=== PATIENT | female | born 1940 | race African-American/Black ===

== ENCOUNTER 2017-02-27 15:00 | Emergency (ER) | payer MEDICARE, OTHER ==
[2017-02-27 15:09] VITALS: TEMP 98.5; BMI 21.3
--- NOTE | 2017-02-27 15:56 | PDOC ---
History of Present Illness - General Chief Complaint: Pain Stated Complaint: ABD PAIN Time Seen by Provider: 02/27/17 15:04 - History of Present Illness Initial Comments: 02/27/17 15:48 Ms. Messina is a 76 yo F with h/o diverticulosis, and dementia who presents with new onset abdominal pain. Pt. arrived via EMS after experiencing sharp lower, 10 /10, nonmigratory, unremitting, progressive, abdominal pain this AM. Pain aggravated with movement, pressure, and laying supine. Pt. reports pain refractory to pain medication administered by home health, but unable to recall which medication received. Endorses one episode of bilious vomiting with no visualization of blood in emesis 24 hours ago. Denies violent retching or chest pain. Denies reflux symptoms. Last BM this AM with no visualization of blood in stool or dark stools. Denies constipation/diarrhea, fevers/chills, flank pain , hematuria, postprandial pain, increased urinary frequency or urgency,. Pt urinary incontinence at baseline. Pt. has chronic Patino. Endorses adequate fluid hydration and appetite. Past History - Past Medical History Allergies/Adverse Reactions: Allergies Allergy/AdvReac Type Severity Reaction Status Date / Time aspirin Allergy Verified 02/27/17 15:09 Home Medications: Ambulatory Orders Albuterol Sulfate [Proair Hfa -] 90 mcg IN Q6H PRN 03/16/14 Atorvastatin Ca [Lipitor] 20 mg PO DAILY 03/16/14 Benztropine Mesylate 0.5 mg PO 03/16/14 Cephalexin [Keflex] 500 mg PO QID #28 capsule 03/16/14 Ciprofloxacin [Cipro -] 500 mg PO BID 03/16/14 Citalopram Hydrobromide [Celexa -] 20 mg PO DAILY 03/16/14 Exelon Patch 4.6MG/24 Hours - 4.6 mg TD DAILY 03/16/14 Memantine HCl [Namenda Xr] 28 mg PO DAILY 03/16/14 Metronidazole [Flagyl] 500 mg PO BID 03/16/14 Olmesartan Medoxomil [Benicar -] 20 mg PO DAILY 03/16/14 Ondansetron HCl [Zofran] 8 mg PO TID PRN #14 tablet 03/16/14 Oxycodone HCl/Acetaminophen [Percocet 5-325 mg Tablet -] 1 - 2 tab PO Q6H PRN # 20 tab 03/16/14 Risperidone [Risperidone Odt] 2 mg PO HS 03/16/14 Tiotropium [place] [Spiriva] 18 mcg IN DAILY 03/16/14 Tramadol HCl 50 mg PO Q8H PRN 03/16/14 Trazodone HCl [Desyrel -] 100 mg PO HS 03/16/14 Levofloxacin [Levaquin -] 500 mg PO DAILY #7 tablet 06/28/16 Sulfamethoxazole/Trimethoprim [Bactrim DS -] 1 each PO BID #20 tablet 02/27/17 Dementia: Yes HTN: Yes Psychiatric Problems: Yes - Psycho/Social/Smoking Cessation Hx Anxiety: No Suicidal Ideation: No Smoking History: Never smoked Have you smoked in the past 12 months: No Information on smoking cessation initiated: No Hx Alcohol Use: No Drug/Substance Use Hx: No Substance Use Type: None Review of Systems - Review of Systems Comments:: 02/27/17 15:56 GENERAL/CONSTITUTIONAL: No fever or chills. No weakness. HEAD, EYES, EARS, NOSE AND THROAT: No change in vision. No ear pain or discharge. No sore throat. CARDIOVASCULAR: No chest pain or shortness of breath RESPIRATORY: No cough, wheezing, or hemoptysis. GASTROINTESTINAL:+ abdominal pain, nausea and vomiting. Absent diarrhea or constipation. GENITOURINARY: No dysuria, frequency, or change in urination. MUSCULOSKELETAL: No joint or muscle swelling or pain. No neck or back pain. SKIN: No rash NEUROLOGIC: No headache, vertigo, loss of consciousness, or change in strength/ sensation. ENDOCRINE: No increased thirst. No abnormal weight change HEMATOLOGIC/LYMPHATIC: No anemia, easy bleeding, or history of blood clots. ALLERGIC/IMMUNOLOGIC: No hives or skin allergy. *Physical Exam - Vital Signs Last Vital Signs Temp Pulse Resp BP Pulse Ox 98.5 F 110 H 18 157/81 100 02/27/17 15:00 02/27/17 15:00 02/27/17 15:00 02/27/17 15:00 02/27/17 15:00 - Physical Exam Comments: 02/27/17 15:57 GENERAL: Awake, alert, and fully oriented, in no acute distress HEAD: No signs of trauma, normocephalic, atraumatic EYES: PERRLA, EOMI, sclera anicteric, conjunctiva clear ENT: Auricles normal inspection, hearing grossly normal, nares patent, oropharynx clear without exudates. Moist mucosa NECK: Normal ROM, supple, no lymphadenopathy, JVD, or masses LUNGS: No distress, speaks full sentences, clear to auscultation bilaterally HEART: + Grade 2 Systolic murmur. Regular rate and rhythm, normal S1 and S2, rubs or gallops, peripheral pulses normal and equal bilaterally. ABDOMEN: Tender to palpation lower midline abdomen. + Suprapubic pain. Absent epigastric tenderness. Absent HSP , magallanes sign, mcburney point tenderness, rovsing sign, or flank pain. Soft, nondistended, normoactive bowel sounds. No guarding, no rebound, rigidity, or pulsatile abdomen. No masses. Clear to inpsection. EXTREMITIES: Normal inspection, Normal range of motion, no edema. No clubbing or cyanosis. NEUROLOGICAL: Cranial nerves II through XII grossly intact. Normal speech, normal gait, no focal sensorimotor deficits SKIN: Warm, Dry, normal turgor, no rashes or lesions noted. Heart Score/ECG Review - Age Age: >/= 65 - ECG Intrepretation Rhythm: Regular Rhythm - [place]: Normal - P and [place] Delta Wave(s) Present: No WPW: No - ST and T Flattened T Waves: No Prolonged Q-T Interval: No Comment:: 02/27/17 17:15 new onset t wave inversion in lead AvL ED Treatment Course - LABORATORY CBC & Chemistry Diagram: 02/27/17 15:51 02/27/17 15:51 Medical Decision Making - Medical Decision Making 02/27/17 16:02 76 yo F with h/o diverticulosis, and dementia who presents with lower abdominal pain. Pt. reports new onset lower abdominal pain. There is moderate suspicion for lower UTI despite negative urinary complaints. However, pt. is elderly, has mild suprapubic tenderness, and may present with atypical UTI. There is low concern of sepsis or pyelonephritis. Pt is afebrile, and tachycardic on presentation. There was absent flank pain on PE and pt. is non ill appearing. Low suspicion for diverticultis in this pt. with h/o diverticulosis. Pt. vitals wnl and lower abdominal pain predominately at midline/suprapubic. Absent findings on H&P to suggest AAA, or mesenteric ischemia, despite having risk factors. R/o suspected lower UTI vs diverticulitis. ED Course: CBC ,CMP UA EKG, Trop, CK Lipase 02/27/17 17:12 EKG reveals T wave inversion in AvL 02/27/17 18:23 UA reveals 3 + Leuk esterase, 159 RBC, 1232 WBC Bactram DS PO Q12 hours 02/27/17 18:34 CMP unremarkable CBC no evidence of leukocytosis Stable and ready to discharge home *DC/Admit/Observation/Transfer Diagnosis at time of Disposition: UTI (lower urinary tract infection) - Discharge Dispostion Disposition: HOME Admit: No - Prescriptions Prescriptions: Sulfamethoxazole/Trimethoprim [Bactrim DS -] 1 each PO BID #20 tablet - Referrals Referrals: Heriberto Morales [Primary Care Provider] - - Patient Instructions Printed Discharge Instructions: DI for Urinary Tract Infection (UTI) Additional Instructions: Please take medication every 12 hours. Return to ED if you experience worsening symptoms or fever,chills, nausea, vomiting. - Attestations Physician Attestion: 02/27/17 18:53 I, Dr. Felipe Farnsworth, attest that this document has been prepared under my direction and personally reviewed by me in its entirety. I further attest, that it accurately reflects all work, treatment, procedures and medical decision -making performed by me.
[2017-02-27] MEDS ORDERED: SODIUM CHLORIDE 500 ML IV ONE (16:20)
--- NOTE | 2017-02-27 16:20 | PDOC ---
Attending Attestation - Resident Resident Name: Felipe Farnsworth - ED Attending Attestation I have performed the following: I have examined & evaluated the patient, The case was reviewed & discussed with the resident, I agree w/resident's findings & plan, Exceptions are as noted - HPI HPI: 02/27/17 16:16 76y/o F with onset of lower abdominal pain today with some urinary complaints. No n/v/d/c, pain is similar to past UTI, no f/c/flank pain. - Physicial Exam PE: 02/27/17 16:18 HR 110 at triage, 100 on exam. otherwise afebrile and well appearing abd soft/nd. diffuse discomfort greatest in the lower abdomen, no guarding/ rebound. BS nl, no cvat. - Medical Decision Making 02/27/17 16:18 Patient seen and evaluated with the resident. I agree with the overall evaluation, assessment, and management with the following summary of visit: 76y/o F with nonspecific lower abdominal pain similar to past UTI. Has known diverticulosis, no peritoneal findings on exam. ? UTI v. bowel infection/ inflammation. Monitor HR, ? dehydration v. early infection. labs, ua if UA wnl, would perform CTAP reassess and dispo. monitor heart rate after IV fluids
[2017-02-27 16:34] LABS: URINE APPEARANCE TURBID; URINE BILIRUBIN NEGATIVE (NEGATIVE); URINE COLOR YELLOW; URINE GLUCOSE (UA) NEGATIVE (NEGATIVE); URINE KETONE TRACE (NEGATIVE); URINE NITRITE NEGATIVE (NEGATIVE)
[2017-02-27 16:42] LABS: URINE BLOOD 2+ (NEGATIVE); URINE LEUK ESTERASE 3+ (NEGATIVE); URINE PROTEIN 2+ (NEGATIVE)
[2017-02-27 16:46] LABS: BASOPHIL 0.7 % (0-2.0); EOSINOPHIL 0.7 % (0-4.5); MCH 30.5 pg (25.7-33.7); MCHC 33.2 g/dl (32.0-36.0); MEAN CELL VOLUME 91.9 fl (80-96); MEAN PLT VOLUME 7.5 fl (7.5-11.1); NEUTROPHILS 78.4 % (42.8-82.8); PLATELET COUNT 495 K/MM3 (134-434); RDW 14.6 % (11.6-15.6); WHITE BLOOD COUNT 7.1 K/mm3 (4.0-10.0)
[2017-02-27 16:53] LABS: ALBUMIN 4.2 g/dl (3.4-5.0); ANION GAP 11 (8-16); BILIRUBIN,TOTAL 0.3 mg/dL (0.2-1.0); CALCIUM 9.3 mg/dL (8.5-10.1); CO2 25 mmol/L (21-32); CREATININE 0.7 mg/dL (0.55-1.02); GLUCOSE,RANDOM 112 mg/dL (74-106); SGOT/AST 15 U/L (15-37); SGPT/ALT 13 U/L (12-78); TOT PROT 8.2 g/dl (6.4-8.2)
[2017-02-27 16:54] LABS: ALK PHOS 81 U/L (45-117)
[2017-02-27 17:24] LABS: URINE RBC 159 /hpf (0-3); URINE WBC 1232 /hpf (3-5)
[2017-02-27 20:08] VITALS: BP 140/90; PULSE 83
[2017-02-27] MEDS ORDERED: SULFAMETHOXAZOLE/TRIMETHOPRIM 800MG/160MG D.S. TABLET PO SCH (22:00)
[2017-02-28 09:43] LABS: TROPONIN I < 0.02 ng/ml (0.00-0.05)
--- NOTE | 2017-02-28 14:55 | EKG ---
Test Reason : Blood Pressure : / mmHG Vent. Rate : 103 BPM Atrial Rate : 103 BPM P-R Int : 158 ms QRS Dur : 072 ms QT Int : 338 ms P-R-T Axes : 077 047 091 degrees QTc Int : 442 ms SINUS TACHYCARDIA OTHERWISE NORMAL ECG WHEN COMPARED WITH ECG OF 13-MAR-2010 09:31, VENT. RATE HAS INCREASED BY 47 BPM NON-SPECIFIC CHANGE IN ST SEGMENT IN LATERAL LEADS NONSPECIFIC T WAVE ABNORMALITY NOW EVIDENT IN LATERAL LEADS Confirmed by SARAHI WILKERSON MD ([id number]) on 02/28/2017 2:55:06 PM Referred By: Confirmed By:SARAHI WILKERSON MD
== END 2017-02-27 20:15 | disposition home or self-care (01) ==
LOC: JER 15:00
PROC: 3E0337Z Introduction of Electrolytic and Water Balance Substance into Peripheral Vein, Percutaneous Approach (ICD-10-PCS; principal; 2017-02-27)
DX: N39.0 Urinary tract infection, site not specified (principal); F03.90 Unspecified dementia, unspecified severity, without behavioral disturbance, psychotic disturbance, mood disturbance, and anxiety; Z87.19 Personal history of other diseases of the digestive system
CPT/HCPCS: 36415; 80053; 81003; 81015; 82550; 83690; 84484; 85025; 93005; 93010; 96360; 99283-25

== ENCOUNTER 2019-05-01 10:39 | Emergency (ER) | payer MEDICARE, OTHER ==
[2019-05-01 11:33] VITALS: BMI 22.6
[2019-05-01 13:36] LABS: BASO % 0.7 % (0-2.0); EOS % 1.1 % (0-4.5); HEMATOCRIT 45.3 % (32.4-45.2); HEMOGLOBIN 15.1 GM/dL (10.7-15.3); LYMPH % 13.4 % (8-40); MCH 31.3 pg (25.7-33.7); MCHC 33.3 g/dl (32.0-36.0); NEUT % 74.8 % (42.8-82.8); PLATELET COUNT 642 K/MM3 (134-434); RBC 4.82 M/mm3 (3.60-5.2); RDW 14.5 % (11.6-15.6); WHITE BLOOD COUNT 6.1 K/mm3 (4.0-10.0)
[2019-05-01 14:03] LABS: ALBUMIN 4.6 g/dl (3.4-5.0); BILIRUBIN,TOTAL 0.8 mg/dL (0.2-1); BLOOD UREA NITROGEN 25.4 mg/dL (7-18); CALCIUM 9.7 mg/dL (8.5-10.1); CREATININE 0.9 mg/dL (0.55-1.3); POTASSIUM 4.8 mmol/L (3.5-5.1); TOT PROT 8.3 g/dl (6.4-8.2)
[2019-05-01] MEDS ORDERED: ACETAMINOPHEN 1000 MG/100 ML VIAL (NON FORMULARY) IVPB ONE (17:14)
[2019-05-01] MEDS ORDERED: ACETAMINOPHEN 500 MG TABLET (FP) PO ONE (17:17)
--- NOTE | 2019-05-01 17:19 | PDOC ---
Documentation entered by Martha Alan SCRIBE, acting as scribe for Noemi Alvarado MD. Noemi Alvarado MD: This documentation has been prepared by the Dayanna tay Adrianna, SCRIBE, under my direction and personally reviewed by me in its entirety. I confirm that the documentation accurately reflects all work, treatment, procedures, and medical decision making performed by me. History of Present Illness - General Chief Complaint: Pain Stated Complaint: ABD PAIN Time Seen by Provider: 05/01/19 11:36 - History of Present Illness Initial Comments: The patient is a 78 year old female, with a significant PMH of COPD, dementia, DM, HTN, and diverticulosis, who presents to the ED for evaluation of abdominal pain for 2 days. Patient complains of sudden onset diffuse abdominal pain. She reports more than 30 episodes of diarrhea, which were loose, watery stools. Patient notes one episode of nausea with NBNB vomit. Patient additionally endorses associated dysuria. Patients family notes she had a hernia repair done 2 months ago, and they are concerned that it is getting worse. Denies fever, chills, chest pain, SOB, hematuria, constipation. Allergies: Aspirin Surgical History: Abdominal hernia repair Social History: Dementia. Denies EtOH, tobacco, or illicit drug use PCP: Dr. Morales Past History - Past Medical History Allergies/Adverse Reactions: Allergies Allergy/AdvReac Type Severity Reaction Status Date / Time aspirin Allergy Verified 02/27/17 15:09 Home Medications: Ambulatory Orders Albuterol 0.083% Nebulizer Reta [Ventolin 0.083% Nebulizer Soln -] 1 neb NEB Q6H 05/01/19 Amlodipine/Atorvastatin [Amlodipine-Atorvast 10-10 mg] 1 each PO DAILY 05/01/19 Atorvastatin Ca [Lipitor] 20 mg PO HS 05/01/19 Cariprazine HCl [Vraylar] 3 mg PO DAILY 05/01/19 Memantine HCl/Donepezil HCl [Namzaric 21 mg-10 mg Capsule] 1 each PO DAILY 05/01 Patient Specific Medications [Pt Own Med Drawer -] 1 ea DAILY MDD Merbetric 25 mg 05/01/19 Tiotropium Br/Olodaterol HCl [Stiolto Respimat Inhal [place]] 2 puff DAILY Valsartan 360 mg PO DAILY 05/01/19 Anemia: No Asthma: No Cancer: No Cardiac Disorders: No CVA: No COPD: Yes CHF: No DVT: No Dementia: Yes Diabetes: Yes Dialysis: No GI Disorders: No Disorders: No HTN: Yes Hypercholesterolemia: No Kidney Stones: No Liver Disease: No Psychiatric Problems: Yes Seizures: No Thyroid Disease: No Lung CA: No - Surgical History Abdominal Surgery: Yes (hernia surgery 09/24) - Immunization History Immunization Up to Date: No - Suicide/Smoking/Psychosocial Hx Smoking History: Never smoked Have you smoked in the past 12 months: No Hx Alcohol Use: No Drug/Substance Use Hx: No Substance Use Type: None Review of Systems - Review of Systems Comments:: GENERAL/CONSTITUTIONAL: No fever or chills. No weakness. HEAD, EYES, EARS, NOSE AND THROAT: No change in vision. No ear pain or discharge. No sore throat. CARDIOVASCULAR: No chest pain or shortness of breath. RESPIRATORY: No cough, wheezing, or hemoptysis. GASTROINTESTINAL: +Nausea. +NBNB vomit. +>30 episodes of loose, watery stool. No constipation. GENITOURINARY: +Dysuria. No frequency or change in urination. MUSCULOSKELETAL: No joint or muscle swelling or pain. No neck or back pain. SKIN: No rash NEUROLOGIC: No headache, vertigo, loss of consciousness, or change in strength/ sensation. ENDOCRINE: No increased thirst. No abnormal weight change. HEMATOLOGIC/LYMPHATIC: No anemia, easy bleeding, or history of blood clots. ALLERGIC/IMMUNOLOGIC: No hives or skin allergy. *Physical Exam - Vital Signs Last Vital Signs Temp Pulse Resp BP Pulse Ox 97.9 F 93 H 18 161/78 97 05/01/19 11:08 05/01/19 11:08 05/01/19 11:08 05/01/19 11:08 05/01/19 11:57 - Physical Exam Comments: GENERAL: Awake, alert, and fully oriented, in no acute distress HEAD: No signs of trauma EYES: PERRLA, EOMI, sclera anicteric, conjunctiva clear ENT: Auricles normal inspection, hearing grossly normal, nares patent, oropharynx clear without exudates. Moist mucosa NECK: Normal ROM, supple, no lymphadenopathy, JVD, or masses LUNGS: Breath sounds equal, clear to auscultation bilaterally. No wheezes, and no crackles HEART: Regular rate and rhythm, normal S1 and S2, no murmurs, rubs or gallops ABDOMEN: Soft, nontender, normoactive bowel sounds. No guarding, no rebound. No masses EXTREMITIES: Normal range of motion, no edema. No clubbing or cyanosis. No cords, erythema, or tenderness NEUROLOGICAL: Cranial nerves II through XII grossly intact. Normal speech, normal gait SKIN: Warm, Dry, normal turgor, no rashes or lesions noted. ED Treatment Course - LABORATORY CBC & Chemistry Diagram: 05/01/19 13:00 05/01/19 12:08 - ADDITIONAL ORDERS Additional order review: Laboratory Results 05/01/19 05/01/19 05/01/19 16:34 13:00 12:08 PT with INR Cancelled INR Cancelled PTT (Actin FS) Cancelled Sodium 138 Potassium 4.8 Chloride 102 Carbon Dioxide 27 Anion Gap 9 BUN 25.4 H Creatinine 0.9 Est GFR (CKD-EPI)AfAm 71.98 Est GFR (CKD-EPI)NonAf 62.11 Random Glucose 70 L Calcium 9.7 Total Bilirubin 0.8 AST 44 H ALT 27 Alkaline Phosphatase 73 Total Protein 8.3 H Albumin 4.6 Stool Occult Blood Negative 05/01/19 13:00 RBC 4.82 MCV 94.0 MCHC 33.3 RDW 14.5 MPV 8.0 Neutrophils % 74.8 Lymphocytes % 13.4 Monocytes % 10.0 Eosinophils % 1.1 Basophils % 0.7 - RADIOLOGY Radiology Studies Ordered: Category Date Time Status ABDOMEN & PELVIS CT WITH CONTR [CT] Stat CT Scan 05/01/19 12:04 Completed TRANSVAGINAL ULTRASOUND US [US] Stat Ultrasound 05/01/19 15:22 Completed *DC/Admit/Observation/Transfer Diagnosis at time of Disposition: Abdominal pain - Discharge Dispostion Disposition: HOME Decision to Admit order: No - Referrals Referrals: Heriberto Morales [Primary Care Provider] - - Patient Instructions Printed Discharge Instructions: DI for Abdominal Pain-Adult Additional Instructions: you came to the ED for abdominal pain. We did a cat scan and an ultrasound, which were both normal except for a small cyst on your ovaries. you shoudl return to the ED for severe pain, severe nausea and vomiting, pain with fever, other new or worsening symptoms. Make sure that you follow up with your doctor. - Post Discharge Activity
[2019-05-01] MEDS ORDERED: ACETAMINOPHEN 500 MG TABLET (FP) ONE (17:24)
[2019-05-01 17:51] VITALS: BP 148/82; PULSE 67; TEMP 97.8
== END 2019-05-01 17:54 | disposition home or self-care (01) ==
LOC: JER 10:39
DX: R10.84 Generalized abdominal pain (principal); I10 Essential (primary) hypertension; E11.9 Type 2 diabetes mellitus without complications; J44.9 Chronic obstructive pulmonary disease, unspecified; F03.90 Unspecified dementia, unspecified severity, without behavioral disturbance, psychotic disturbance, mood disturbance, and anxiety; Z87.19 Personal history of other diseases of the digestive system
CPT/HCPCS: 36415; 74177-TC; 76830-TC; 80053; 82272; 85025; 99284-25

== ENCOUNTER 2021-11-14 10:31 | Emergency (ER) | payer OTHER ==
[2021-11-14 10:46] VITALS: BP 158/57; PULSE 79; TEMP 98.2; BMI 24.5
[2021-11-14] MEDS ORDERED: LIDOCAINE 2.5%/PRILOCAINE 2.5% (5 Gram/TUBE) TP ONE (11:40)
[2021-11-14] MEDS ORDERED: LIDOCAINE 2.5%/PRILOCAINE 2.5% 30 GRAM TUBE TP ONE (11:41)
[2021-11-14] MEDS ORDERED: BACITRACIN 15 GM TUBE TOPICAL OINTMENT ONE (12:00)
[2021-11-14] MEDS ORDERED: BACITRACIN 15 GM TUBE TOPICAL OINTMENT TP ONE (12:02)
== END 2021-11-14 12:30 | disposition home or self-care (01) ==
LOC: JERFT 10:31
DX: S00.431A Contusion of right ear, initial encounter (principal); H92.01 Otalgia, right ear; Y99.9 Unspecified external cause status
CPT/HCPCS: 99283-25

== ENCOUNTER 2023-03-08 10:33 | Inpatient (IN) | payer MEDICARE, OTHER ==
[2023-03-08 10:51] VITALS: BMI 17.9
[2023-03-08] MEDS ORDERED: morphine CARPU-JECT 2 MG/1 ML DISP.SYRIN IVPUSH ONE (12:01)
[2023-03-08 12:36] LABS: HEMATOCRIT 51.4 % (32.4-45.2); HEMOGLOBIN 17.6 GM/dL (10.7-15.3); MCH 30.3 pg (25.7-33.7); MCHC 34.3 g/dl (32.0-36.0); MEAN CELL VOLUME 88.2 fl (80-96); MEAN PLT VOLUME 7.9 fl (7.5-11.1); PLATELET COUNT 732 10^3/uL (134-434); RBC 5.83 M/mm3 (3.60-5.2); WHITE BLOOD COUNT 12.8 K/mm3 (4.0-10.0)
[2023-03-08 13:03] LABS: CHLORIDE 93 mmol/L (98-107); SODIUM 137 mmol/L (136-145)
[2023-03-08 13:05] LABS: CALCIUM 10.1 mg/dL (8.5-10.1)
[2023-03-08 13:06] LABS: ALBUMIN 4.6 g/dl (3.4-5.0); BLOOD UREA NITROGEN 48.3 mg/dL (7-18); CO2 27 mmol/L (21-32); GLUCOSE,RANDOM 126 mg/dL (74-106)
[2023-03-08 13:09] LABS: CREATININE 3.4 mg/dL (0.55-1.3); SGOT/AST 27 U/L (15-37); SGPT/ALT 23 U/L (13-61)
[2023-03-08 13:10] LABS: TOT PROT 9.1 g/dl (6.4-8.2)
[2023-03-08 13:11] LABS: BILIRUBIN,TOTAL 0.7 mg/dL (0.2-1)
[2023-03-08 13:12] LABS: ALK PHOS 77 U/L (45-117)
[2023-03-08 13:16] LABS: ANION GAP 17 MMOL/L (8-16); POTASSIUM 6.4 mmol/L (3.5-5.1)
[2023-03-08] MEDS ORDERED: SODIUM CHLORIDE 0.9% 500 ML INFUS.BAG IV ONE (13:22)
[2023-03-08 13:25] LABS: ANISOCYTOSIS 1+; MACROCYTOSIS 0
[2023-03-08] MEDS ORDERED: METOCLOPRAMIDE HCL INJECTION 10 MG/2 ML VIAL IVPUSH ONE (13:26)
[2023-03-08 13:47] LABS: INR 1.16 (0.83-1.09); PROTHROMBIN TIME (PATIENT) 13.4 SEC (9.7-13.0)
[2023-03-08 14:41] LABS: EPI CELLS 24 /uL (0-25.1); HYALINE CASTS 1 /uL (0-3.1); URINE APPEARANCE TURBID; URINE BACTERIA 1681 /uL (0-1359); URINE BILIRUBIN 2+ (NEGATIVE); URINE COLOR DK YELLOW; URINE GLUCOSE (UA) NEGATIVE (NEGATIVE); URINE KETONE TRACE (NEGATIVE); URINE LEUK ESTERASE 2+ (NEGATIVE); URINE NITRITE NEGATIVE (NEGATIVE); URINE PROTEIN 1+ (NEGATIVE); URINE WBC 5049 /uL (0-25.8)
[2023-03-08 14:52] LABS: POTASSIUM 3.7 mmol/L (3.5-5.1)
[2023-03-08 14:54] LABS: BLOOD UREA NITROGEN 48.8 mg/dL (7-18); CALCIUM 9.3 mg/dL (8.5-10.1)
[2023-03-08 14:58] LABS: CREATININE 3.1 mg/dL (0.55-1.3)
[2023-03-08 15:20] LABS: URINE RBC 1043 /uL (0-23.9)
[2023-03-08] MEDS ORDERED: CEFTRIAXONE 1 GM/50 ML BAG ONE (16:35)
[2023-03-08] MEDS ORDERED: LIDOCAINE HCL 2% JELLY 11 ML TP ONE (18:40)
[2023-03-08] MEDS: LACTATED RINGERS SOLUTION 1,000 ML IV SCH (19:50)
[2023-03-08] MEDS: HEPARIN NA (PORCINE) 5,000 UNITS/ML 1ML VIAL SQ SCH (22:49)
[2023-03-08] MEDS: INSULIN (NOVOLOG) ASPART 100 UNITS/ML 10ML VIAL SQ SCH (22:50)
[2023-03-08] MEDS ORDERED: PHENOL 177 ML SPRAY BOTTLE MM PRN (23:13)
[2023-03-08] MEDS ORDERED: ONDANSETRON 4 MG TABLET PO PRN (23:13)
[2023-03-09] MEDS: LACTATED RINGERS SOLUTION 1,000 ML IV SCH ×3 (02:30→22:07)
[2023-03-09] MEDS: HEPARIN NA (PORCINE) 5,000 UNITS/ML 1ML VIAL SQ SCH ×3 (05:18→22:14)
[2023-03-09] MEDS: INSULIN (NOVOLOG) ASPART 100 UNITS/ML 10ML VIAL SQ SCH ×4 (06:04→22:15)
[2023-03-09] MEDS: CEFTRIAXONE 1 GM in DEXTROSE 5%-WATER - 50 ML IVPB SCH (09:31)
[2023-03-09 10:58] LABS: BASO % 0.4 % (0-2.0); EOS % 0.3 % (0-4.5); HEMATOCRIT 46.9 % (32.4-45.2); HEMOGLOBIN 15.5 GM/dL (10.7-15.3); LYMPH % 6.3 % (8-40); MCH 30.2 pg (25.7-33.7); MEAN CELL VOLUME 91.6 fl (80-96); PLATELET COUNT 504 10^3/uL (134-434); RBC 5.12 M/mm3 (3.60-5.2); RDW 16.7 % (11.6-15.6); WHITE BLOOD COUNT 10.3 K/mm3 (4.0-10.0)
[2023-03-09] MEDS ORDERED: DEXTROSE 50%-WATER 25 GM/50 ML DISP.SYRIN IVPUSH ONE (13:00)
[2023-03-09] MEDS ORDERED: DEXTROSE 50%-WATER - 25 GM/50 ML VIAL IVPUSH PRN (13:11)
[2023-03-09] MEDS: UMECLIDINIUM/VILANTEROL (ANORO) 62.5/25 MCG INHALER IH SCH (13:33)
[2023-03-09] MEDS: ACETAMINOPHEN 1000 MG/100 ML BAG IVPB PRN (22:14)
[2023-03-10] MEDS: HEPARIN NA (PORCINE) 5,000 UNITS/ML 1ML VIAL SQ SCH ×3 (05:56→23:05)
[2023-03-10] MEDS: INSULIN (NOVOLOG) ASPART 100 UNITS/ML 10ML VIAL SQ SCH ×4 (06:13→23:09)
[2023-03-10] MEDS: CEFTRIAXONE 1 GM in DEXTROSE 5%-WATER - 50 ML IVPB SCH (10:41)
[2023-03-10] MEDS: UMECLIDINIUM/VILANTEROL (ANORO) 62.5/25 MCG INHALER IH SCH (10:43)
[2023-03-10 12:16] LABS: HEMATOCRIT 42.8 % (32.4-45.2); MCH 29.9 pg (25.7-33.7); MCHC 32.6 g/dl (32.0-36.0); MEAN CELL VOLUME 91.7 fl (80-96); MEAN PLT VOLUME 8.2 fl (7.5-11.1); PLATELET COUNT 482 10^3/uL (134-434); RBC 4.67 M/mm3 (3.60-5.2); RDW 16.1 % (11.6-15.6); WHITE BLOOD COUNT 5.5 K/mm3 (4.0-10.0)
[2023-03-10 12:43] LABS: POTASSIUM 3.7 mmol/L (3.5-5.1)
[2023-03-10 12:46] LABS: CALCIUM 8.6 mg/dL (8.5-10.1)
[2023-03-10 12:49] LABS: CREATININE 0.7 mg/dL (0.55-1.3)
[2023-03-10] MEDS: LACTATED RINGERS SOLUTION 1,000 ML IV SCH (17:59)
[2023-03-10 19:08] VITALS: RESP 16
[2023-03-11] MEDS: HEPARIN NA (PORCINE) 5,000 UNITS/ML 1ML VIAL SQ SCH ×3 (06:30→23:26)
[2023-03-11] MEDS: INSULIN (NOVOLOG) ASPART 100 UNITS/ML 10ML VIAL SQ SCH ×4 (06:37→21:53)
[2023-03-11] MEDS: ACETAMINOPHEN 1000 MG/100 ML BAG IVPB PRN ×2 (09:28→18:06)
[2023-03-11] MEDS: CEFTRIAXONE 1 GM in DEXTROSE 5%-WATER - 50 ML IVPB SCH (09:30)
[2023-03-11] MEDS: UMECLIDINIUM/VILANTEROL (ANORO) 62.5/25 MCG INHALER IH SCH (09:46)
[2023-03-12] MEDS: HEPARIN NA (PORCINE) 5,000 UNITS/ML 1ML VIAL SQ SCH ×2 (05:48→13:09)
[2023-03-12] MEDS: INSULIN (NOVOLOG) ASPART 100 UNITS/ML 10ML VIAL SQ SCH ×3 (06:10→18:11)
[2023-03-12] MEDS: ACETAMINOPHEN 1000 MG/100 ML BAG IVPB PRN (09:16)
[2023-03-12] MEDS: CEFTRIAXONE 1 GM in DEXTROSE 5%-WATER - 50 ML IVPB SCH (09:18)
[2023-03-12] MEDS: UMECLIDINIUM/VILANTEROL (ANORO) 62.5/25 MCG INHALER IH SCH (09:18)
[2023-03-12 20:07] VITALS: BP 164/81; PULSE 62; TEMP 98.4
== END 2023-03-12 20:50 | disposition home health service (06) | DRG 388 ==
LOC: JER 10:33 → JERBED 17:36 → J5S 03-09 01:04
PROVIDERS: ADMIT Internal Medicine; ATTEND Family Medicine
DX: K56.609 Unspecified intestinal obstruction, unspecified as to partial versus complete obstruction (principal); E43 Unspecified severe protein-calorie malnutrition; N17.9 Acute kidney failure, unspecified; N39.0 Urinary tract infection, site not specified; R64 Cachexia; Z68.1 Body mass index [BMI] 19.9 or less, adult; E11.9 Type 2 diabetes mellitus without complications; J44.9 Chronic obstructive pulmonary disease, unspecified; G30.9 Alzheimer's disease, unspecified; I10 Essential (primary) hypertension; F02.80 Dementia in other diseases classified elsewhere, unspecified severity, without behavioral disturbance, psychotic disturbance, mood disturbance, and anxiety; E78.5 Hyperlipidemia, unspecified; E87.5 Hyperkalemia
CPT/HCPCS: 36415; 71045-TC-FY; 74018-TC-FY; 74176-TC; 80048; 80053; 81003; 82272; 82962; 83036; 83605; 84439; 84443; 84484; 85025; 85027; 85610; 86850; 86900; 86901; 87086; 87186; 93005; 93010; 97116-GP; 97161-GP; 99285-25; J1644

== ENCOUNTER 2023-08-15 12:30 | Inpatient (IN) | payer MEDICARE, OTHER ==
[2023-08-15 15:22] LABS: BASO % 1.1 % (0-2.0); EOS % 1.3 % (0-4.5); HEMATOCRIT 51.4 % (32.4-45.2); HEMOGLOBIN 16.6 GM/dL (10.7-15.3); LYMPH % 10.7 % (8-40); MCH 29.2 pg (25.7-33.7); MCHC 32.4 g/dl (32.0-36.0); MEAN CELL VOLUME 90.1 fl (80-96); MONO % 8.1 % (3.8-10.2); NEUT % 78.8 % (42.8-82.8); PLATELET COUNT 656 10^3/uL (134-434); RDW 16.3 % (11.6-15.6); WHITE BLOOD COUNT 8.4 K/mm3 (4.0-10.0)
[2023-08-15 15:26] LABS: EPI CELLS 15 /uL (0-25.1); HYALINE CASTS 1 /uL (0-3.1); URINE APPEARANCE CLOUDY; URINE BACTERIA >9,000 /uL (0-1359); URINE BILIRUBIN NEGATIVE (NEGATIVE); URINE COLOR YELLOW; URINE GLUCOSE (UA) NEGATIVE (NEGATIVE); URINE KETONE 1+ (NEGATIVE); URINE LEUK ESTERASE 2+ (NEGATIVE); URINE NITRITE POSITIVE (NEGATIVE); URINE PROTEIN TRACE (NEGATIVE); URINE WBC 642 /uL (0-25.8)
[2023-08-15 15:28] LABS: INR 1.12 (0.83-1.09)
[2023-08-15 15:28] LABS: URINE RBC 393 /uL (0-23.9)
[2023-08-15 15:31] LABS: ACTIVATED PTT 36.9 SECONDS (25.2-36.5)
[2023-08-15] MEDS ORDERED: CEFTRIAXONE 1,000 MG in DEXTROSE 5%-WATER - 50 ML IVPB ONE (15:45)
[2023-08-15 15:58] LABS: CHLORIDE 101 mmol/L (98-107); SODIUM 133 mmol/L (136-145)
[2023-08-15 16:00] LABS: CALCIUM 9.5 mg/dL (8.5-10.1)
[2023-08-15 16:01] LABS: ALBUMIN 3.8 g/dl (3.4-5.0); CO2 24 mmol/L (21-32); GLUCOSE,RANDOM 95 mg/dL (74-106)
[2023-08-15 16:04] LABS: CREATININE 0.7 mg/dL (0.55-1.3); SGOT/AST 51 U/L (15-37)
[2023-08-15 16:06] LABS: BILIRUBIN,TOTAL 0.6 mg/dL (0.2-1); TOT PROT 8.6 g/dl (6.4-8.2)
[2023-08-15] MEDS ORDERED: CEFTRIAXONE 2 GM/100 ML BAG IVPB ONE (16:06)
[2023-08-15 16:07] LABS: ALK PHOS 65 U/L (45-117)
[2023-08-15 17:25] LABS: ANION GAP 8 mmol/L (4-13); POTASSIUM 8.2 mmol/L (3.5-5.1); SGPT/ALT 19 U/L (13-61)
[2023-08-15] MEDS ORDERED: ACETAMINOPHEN 1000 MG/100 ML BAG IVPB ONE (17:34)
[2023-08-15] MEDS ORDERED: ACETAMINOPHEN INJECTION 100 ML IVPB ONE (17:50)
[2023-08-15] MEDS ORDERED: amLODIPine BESYLATE 10 MG TABLET (FP) PO ONE (21:05)
[2023-08-15] MEDS ORDERED: amLODIPine BESYLATE 10 MG TABLET (FP) ONE (22:22)
[2023-08-15 23:36] LABS: POTASSIUM 3.7 mmol/L (3.5-5.1)
[2023-08-15 23:38] LABS: BLOOD UREA NITROGEN 19.8 mg/dL (7-18)
[2023-08-15 23:41] LABS: CREATININE 0.5 mg/dL (0.55-1.3)
[2023-08-16] MEDS ORDERED: ALBUTEROL SO4 HFA INHALER IH PRN (07:09)
[2023-08-16 08:44] LABS: HEMATOCRIT 49.4 % (32.4-45.2); HEMOGLOBIN 16.4 GM/dL (10.7-15.3); MCH 29.9 pg (25.7-33.7); MCHC 33.2 g/dl (32.0-36.0); MEAN PLT VOLUME 7.6 fl (7.5-11.1); MONO % 7.6 % (3.8-10.2); NEUT % 78.4 % (42.8-82.8); PLATELET COUNT 566 10^3/uL (134-434); RBC 5.48 M/mm3 (3.60-5.2); RDW 16.2 % (11.6-15.6)
[2023-08-16] MEDS: CEFTRIAXONE 1 GM in DEXTROSE 5%-WATER - 50 ML IVPB SCH (11:15)
[2023-08-16] MEDS: PANTOPRAZOLE 40 MG TABLET PO SCH (11:16)
[2023-08-16] MEDS: amLODIPine BESYLATE 10 MG TABLET (FP) PO SCH (11:17)
[2023-08-16] MEDS: UMECLIDINIUM/VILANTEROL (ANORO) 62.5/25 MCG INHALER IH SCH (11:19)
[2023-08-16 11:58] LABS: BLOOD UREA NITROGEN 15.1 mg/dL (7-18); CREATININE 0.6 mg/dL (0.55-1.3); POTASSIUM 3.8 mmol/L (3.5-5.1)
[2023-08-16] MEDS: ATORVASTATIN CA 20 MG TABLET (FP) PO SCH (21:45)
[2023-08-17] MEDS: ACETAMINOPHEN 1000 MG/100 ML BAG IVPB PRN ×3 (04:10→16:43)
[2023-08-17] MEDS: CEFTRIAXONE 1 GM in DEXTROSE 5%-WATER - 50 ML IVPB SCH (10:24)
[2023-08-17] MEDS: PANTOPRAZOLE 40 MG TABLET PO SCH (10:25)
[2023-08-17] MEDS: amLODIPine BESYLATE 10 MG TABLET (FP) PO SCH (10:25)
[2023-08-17] MEDS: UMECLIDINIUM/VILANTEROL (ANORO) 62.5/25 MCG INHALER IH SCH (11:01)
[2023-08-17] MEDS: ATORVASTATIN CA 20 MG TABLET (FP) PO SCH (22:19)
[2023-08-18] MEDS: CEFTRIAXONE 1 GM in DEXTROSE 5%-WATER - 50 ML IVPB SCH (09:59)
[2023-08-18] MEDS: amLODIPine BESYLATE 10 MG TABLET (FP) PO SCH (10:00)
[2023-08-18] MEDS: UMECLIDINIUM/VILANTEROL (ANORO) 62.5/25 MCG INHALER IH SCH (10:00)
[2023-08-18] MEDS: PANTOPRAZOLE 40 MG TABLET PO SCH (10:00)
[2023-08-18 10:56] LABS: BASO % 0.6 % (0-2.0); EOS % 1.9 % (0-4.5); HEMATOCRIT 49.8 % (32.4-45.2); LYMPH % 8.2 % (8-40); MCH 29.3 pg (25.7-33.7); MCHC 32.1 g/dl (32.0-36.0); MEAN CELL VOLUME 91.1 fl (80-96); MEAN PLT VOLUME 7.5 fl (7.5-11.1); MONO % 7.2 % (3.8-10.2); NEUT % 82.1 % (42.8-82.8); PLATELET COUNT 563 10^3/uL (134-434); RBC 5.47 M/mm3 (3.60-5.2); WHITE BLOOD COUNT 7.8 K/mm3 (4.0-10.0)
[2023-08-18 11:17] LABS: CHLORIDE 101 mmol/L (98-107); POTASSIUM 4.5 mmol/L (3.5-5.1); SODIUM 138 mmol/L (136-145)
[2023-08-18 11:24] LABS: GLUCOSE,RANDOM 148 mg/dL (74-106)
[2023-08-18 11:25] LABS: ALBUMIN 3.4 g/dl (3.4-5.0); ANION GAP 7 mmol/L (4-13); CO2 30 mmol/L (21-32)
[2023-08-18 11:28] LABS: CREATININE 0.7 mg/dL (0.55-1.3); SGOT/AST 14 U/L (15-37); SGPT/ALT 13 U/L (13-61)
[2023-08-18 11:29] LABS: BILIRUBIN,TOTAL 0.5 mg/dL (0.2-1); TOT PROT 7.4 g/dl (6.4-8.2)
[2023-08-18 11:31] LABS: ALK PHOS 59 U/L (45-117)
[2023-08-18] MEDS ORDERED: ACETAMINOPHEN 325 MG TABLET (FP) PO ONE (13:00)
[2023-08-18 15:05] VITALS: BMI 17.7
[2023-08-18] MEDS: ACETAMINOPHEN 1000 MG/100 ML BAG IVPB PRN (20:12)
[2023-08-18] MEDS: ATORVASTATIN CA 20 MG TABLET (FP) PO SCH (21:19)
[2023-08-19] MEDS: PANTOPRAZOLE 40 MG TABLET PO SCH (10:18)
[2023-08-19] MEDS: CEFTRIAXONE 1 GM in DEXTROSE 5%-WATER - 50 ML IVPB SCH (10:18)
[2023-08-19] MEDS: UMECLIDINIUM/VILANTEROL (ANORO) 62.5/25 MCG INHALER IH SCH (10:18)
[2023-08-19] MEDS: amLODIPine BESYLATE 10 MG TABLET (FP) PO SCH (10:18)
[2023-08-19] MEDS: ACETAMINOPHEN 1000 MG/100 ML BAG IVPB PRN (13:37)
[2023-08-19] MEDS: ATORVASTATIN CA 20 MG TABLET (FP) PO SCH (21:41)
[2023-08-20] MEDS ORDERED: ACETAMINOPHEN 1000 MG/100 ML BAG IVPB ONE (04:06)
[2023-08-20] MEDS: PANTOPRAZOLE 40 MG TABLET PO SCH (09:35)
[2023-08-20] MEDS: CEFTRIAXONE 1 GM in DEXTROSE 5%-WATER - 50 ML IVPB SCH (09:35)
[2023-08-20] MEDS: UMECLIDINIUM/VILANTEROL (ANORO) 62.5/25 MCG INHALER IH SCH (09:36)
[2023-08-20] MEDS: amLODIPine BESYLATE 10 MG TABLET (FP) PO SCH (09:52)
[2023-08-20] MEDS ORDERED: ACETAMINOPHEN 1000 MG/100 ML BAG IVPB PRN (14:38)
[2023-08-20] MEDS: ATORVASTATIN CA 20 MG TABLET (FP) PO SCH (21:23)
[2023-08-20] MEDS ORDERED: SENNOSIDES 8.6MG TABLET (FP) PO ONE (21:45)
[2023-08-21] MEDS: UMECLIDINIUM/VILANTEROL (ANORO) 62.5/25 MCG INHALER IH SCH (09:10)
[2023-08-21] MEDS: amLODIPine BESYLATE 10 MG TABLET (FP) PO SCH (09:10)
[2023-08-21] MEDS: PANTOPRAZOLE 40 MG TABLET PO SCH (09:10)
[2023-08-21] MEDS: CEFTRIAXONE 1 GM in DEXTROSE 5%-WATER - 50 ML IVPB SCH (09:11)
[2023-08-21] MEDS: POLYETHYLENE GLYCOL (HEALTHYLAX) 3350 17 GM PACKET PO SCH (21:26)
[2023-08-21] MEDS: ATORVASTATIN CA 20 MG TABLET (FP) PO SCH (21:26)
[2023-08-22] MEDS: POLYETHYLENE GLYCOL (HEALTHYLAX) 3350 17 GM PACKET PO SCH ×4 (06:05→21:14)
[2023-08-22] MEDS: CEFTRIAXONE 1 GM in DEXTROSE 5%-WATER - 50 ML IVPB SCH (10:11)
[2023-08-22] MEDS: UMECLIDINIUM/VILANTEROL (ANORO) 62.5/25 MCG INHALER IH SCH (10:11)
[2023-08-22] MEDS: PANTOPRAZOLE 40 MG TABLET PO SCH (10:11)
[2023-08-22] MEDS: amLODIPine BESYLATE 10 MG TABLET (FP) PO SCH (10:11)
[2023-08-22] MEDS ORDERED: ACETAMINOPHEN 1000 MG/100 ML BAG IVPB PRN (11:02)
[2023-08-22] MEDS: AMOX TR/POT CLAV 500MG/125MG TABLETS (FP) PO SCH (17:04)
[2023-08-22 19:34] VITALS: RESP 18
[2023-08-22] MEDS: ATORVASTATIN CA 20 MG TABLET (FP) PO SCH (21:14)
[2023-08-23] MEDS: POLYETHYLENE GLYCOL (HEALTHYLAX) 3350 17 GM PACKET PO SCH ×2 (05:35→13:56)
[2023-08-23] MEDS: AMOX TR/POT CLAV 500MG/125MG TABLETS (FP) PO SCH (09:00)
[2023-08-23] MEDS: PANTOPRAZOLE 40 MG TABLET PO SCH (09:24)
[2023-08-23] MEDS: amLODIPine BESYLATE 10 MG TABLET (FP) PO SCH (09:25)
[2023-08-23] MEDS: UMECLIDINIUM/VILANTEROL (ANORO) 62.5/25 MCG INHALER IH SCH (09:25)
[2023-08-23 12:38] VITALS: BP 148/82; PULSE 77; TEMP 97.8
== END 2023-08-23 15:20 | disposition home or self-care (01) | DRG 689 ==
LOC: JER 12:30 → JERBED 16:06 → J4S 08-16 01:54 → OBSVTOIN 08-16 12:15
PROVIDERS: ADMIT Internal Medicine; ATTEND Internal Medicine
DX: N39.0 Urinary tract infection, site not specified (principal); U07.1 COVID-19; R64 Cachexia; Z68.1 Body mass index [BMI] 19.9 or less, adult; G30.9 Alzheimer's disease, unspecified; F02.80 Dementia in other diseases classified elsewhere, unspecified severity, without behavioral disturbance, psychotic disturbance, mood disturbance, and anxiety; E11.9 Type 2 diabetes mellitus without complications; E86.0 Dehydration; E78.5 Hyperlipidemia, unspecified; I10 Essential (primary) hypertension; B96.20 Unspecified Escherichia coli [E. coli] as the cause of diseases classified elsewhere; B95.2 Enterococcus as the cause of diseases classified elsewhere; R55 Syncope and collapse; W18.30XA Fall on same level, unspecified, initial encounter; Y92.098 Other place in other non-institutional residence as the place of occurrence of the external cause; Y99.9 Unspecified external cause status; K59.00 Constipation, unspecified
CPT/HCPCS: 0241U-QW; 36415; 70450-TC; 71045-TC-FY; 72125-TC; 72170-TC-FY; 73560-TC-LT-FY; 73560-TC-RT-FY; 74176-TC; 80048; 80053; 81003; 82962; 84443; 84484; 85025; 85610; 85730; 86140; 87040; 87086; 87186; 93005; 93010; 99285-25; G0378

== ENCOUNTER 2023-10-01 14:36 | Inpatient (IN) | payer MEDICARE, OTHER ==
[2023-10-01] MEDS ORDERED: ACETAMINOPHEN INJECTION 100 ML IVPB ONE (16:09)
[2023-10-01] MEDS ORDERED: AMPICILLIN NA/SULBACTAM NA 3 GM/100 ML BAG IVPB ONE (16:09)
[2023-10-01] MEDS: LACTATED RINGERS SOLUTION 1000 ML INFUS.BAG IV ONE (16:13)
[2023-10-01] MEDS: ACETAMINOPHEN 1000 MG/100 ML BAG IVPB ONE (16:13)
[2023-10-01 16:16] LABS: BASO % 0.6 % (0-2.0); EOS % 0.9 % (0-4.5); HEMATOCRIT 44.6 % (32.4-45.2); HEMOGLOBIN 15.3 GM/dL (10.7-15.3); LYMPH % 5.4 % (8-40); MCH 30.7 pg (25.7-33.7); MCHC 34.3 g/dl (32.0-36.0); MEAN CELL VOLUME 89.5 fl (80-96); MEAN PLT VOLUME 6.6 fl (7.5-11.1); MONO % 6.5 % (3.8-10.2); NEUT % 86.6 % (42.8-82.8); PLATELET COUNT 695 10^3/uL (134-434); RBC 4.98 M/mm3 (3.60-5.2); RDW 15.6 % (11.6-15.6); WHITE BLOOD COUNT 12.4 K/mm3 (4.0-10.0)
[2023-10-01 16:22] LABS: EPI CELLS 5 /uL (0-25.1); HYALINE CASTS 0 /uL (0-3.1); PH,URINE 5.5 (5.0-8.0); URINE APPEARANCE CLOUDY; URINE BACTERIA >9,000 /uL (0-1359); URINE BILIRUBIN NEGATIVE (NEGATIVE); URINE COLOR YELLOW; URINE GLUCOSE (UA) NEGATIVE (NEGATIVE); URINE KETONE NEGATIVE (NEGATIVE); URINE LEUK ESTERASE 3+ (NEGATIVE); URINE NITRITE POSITIVE (NEGATIVE); URINE PROTEIN TRACE (NEGATIVE); URINE RBC 123 /uL (0-23.9); URINE WBC 1574 /uL (0-25.8)
[2023-10-01] MEDS: AMPICILLIN NA/SULBACTAM NA 3 GM in DEXTROSE 5%-WATER 100 ML IVPB ONE (16:30)
[2023-10-01] MEDS ORDERED: PIPERACILLIN/TAZOB 4.5 GM 4.5 GM/100 ML BAG IVPB ONE (16:32)
[2023-10-01 16:33] LABS: CHLORIDE 92 mmol/L (98-107); SODIUM 130 mmol/L (136-145)
[2023-10-01 16:35] LABS: CALCIUM 9.7 mg/dL (8.5-10.1)
[2023-10-01 16:36] LABS: BLOOD UREA NITROGEN 25.6 mg/dL (7-18); CO2 32 mmol/L (21-32); GLUCOSE,RANDOM 124 mg/dL (74-106); MAGNESIUM 1.9 mg/dL (1.8-2.4)
[2023-10-01 16:39] LABS: CREATININE 0.6 mg/dL (0.55-1.3); SGOT/AST 43 U/L (15-37); SGPT/ALT 24 U/L (13-61)
[2023-10-01 16:40] LABS: BILIRUBIN,TOTAL 0.6 mg/dL (0.2-1)
[2023-10-01 16:41] LABS: TOT PROT 8.2 g/dl (6.4-8.2)
[2023-10-01 16:42] LABS: ALK PHOS 101 U/L (45-117)
[2023-10-01 17:03] LABS: ANION GAP 7 mmol/L (4-13); POTASSIUM 6.1 mmol/L (3.5-5.1)
[2023-10-01] MEDS: PIPERACILLIN/TAZOB 4.5 GM 4.5 GM in DEXTROSE 5%-WATER 100 ML IVPB ONE (17:14)
[2023-10-01] MEDS: SODIUM ZIRCONIUM CYCLOSILICATE (LOKELMA) 5 GM PACKET PO ONE (18:19)
[2023-10-01] MEDS: SODIUM BICARBONATE 8.4% 50 MEQ/50 ML DISP.SYRIN IVPUSH ONE (18:19)
[2023-10-01] MEDS: DEXTROSE 50%-WATER 25 GM/50 ML DISP.SYRIN IVPUSH ONE (18:19)
[2023-10-01] MEDS: CALCIUM GLUC IN NACL, ISO-OSM 1 GM/50 ML BAG IVPB ONE (18:19)
[2023-10-01] MEDS: INSULIN REGULAR HUMAN 100 UNITS/ML *VIAL IVPUSH ONE (18:19)
[2023-10-01 19:10] LABS: POTASSIUM 4.7 mmol/L (3.5-5.1)
[2023-10-01 19:13] LABS: CALCIUM 8.9 mg/dL (8.5-10.1)
[2023-10-01 19:14] LABS: ALBUMIN 2.6 g/dl (3.4-5.0)
[2023-10-01 19:17] LABS: CREATININE 0.5 mg/dL (0.55-1.3)
[2023-10-01 19:18] LABS: BILIRUBIN,TOTAL 0.5 mg/dL (0.2-1)
[2023-10-01 19:19] LABS: TOT PROT 6.9 g/dl (6.4-8.2)
[2023-10-01] MEDS ORDERED: ACETAMINOPHEN 325 MG TABLET (FP) PO PRN (19:53)
[2023-10-01] MEDS ORDERED: HEPARIN NA (PORCINE) 5,000 UNITS/ML 1ML VIAL ONE (21:48)
[2023-10-01] MEDS ORDERED: PIPERACILLIN/TAZOB 3.375 GM 3.375 GM/50 ML BAG IVPB ONE (21:49)
[2023-10-01] MEDS: PIPERACILLIN/TAZOB 3.375 GM 3.375 GM in DEXTROSE 5%-WATER - 50 ML IVPB SCH (22:02)
[2023-10-01] MEDS: HEPARIN NA (PORCINE) 5,000 UNITS/ML 1ML VIAL SQ SCH (22:02)
[2023-10-01] MEDS: INSULIN ASPART SLIDING SCALE (NOVOLOG) 1 VIAL SQ SCH (22:03)
[2023-10-02] MEDS ORDERED: PIPERACILLIN/TAZOB 3.375 GM 3.375 GM/50 ML BAG IVPB ONE (02:51)
[2023-10-02 09:09] LABS: BLOOD UREA NITROGEN 17.4 mg/dL (7-18); CALCIUM 8.9 mg/dL (8.5-10.1)
[2023-10-02 09:13] LABS: CREATININE 0.4 mg/dL (0.55-1.3); PHOSPHOROUS 3.7 mg/dL (2.5-4.9)
[2023-10-02] MEDS: MINERAL OIL/PET HY-PHL TOPICAL OINTMENT 454 GM JAR TP SCH (10:00)
[2023-10-02 11:59] LABS: INR 1.2 (0.83-1.09); PROTHROMBIN TIME (PATIENT) 13.9 SEC (9.7-13.0)
[2023-10-02 12:01] LABS: ACTIVATED PTT 32.4 SECONDS (25.2-36.5); BASO % 0.9 % (0-2.0); EOS % 1.2 % (0-4.5); HEMATOCRIT 41.8 % (32.4-45.2); LYMPH % 9.1 % (8-40); MCH 30.3 pg (25.7-33.7); MCHC 33.4 g/dl (32.0-36.0); MEAN CELL VOLUME 90.7 fl (80-96); MEAN PLT VOLUME 6.7 fl (7.5-11.1); MONO % 8.1 % (3.8-10.2); NEUT % 80.7 % (42.8-82.8); PLATELET COUNT 670 10^3/uL (134-434); RBC 4.61 M/mm3 (3.60-5.2); RDW 15.4 % (11.6-15.6); WHITE BLOOD COUNT 8.3 K/mm3 (4.0-10.0)
[2023-10-02] MEDS: VANCOMYCIN/WATER FOR INJ (PEG) 750 MG/150 ML BAG IVPB SCH (12:20)
[2023-10-02] MEDS: PIPERACILLIN/TAZOB 3.375 GM 3.375 GM in DEXTROSE 5%-WATER - 50 ML IVPB SCH (17:11)
[2023-10-02] MEDS ORDERED: PIPERACILLIN/TAZOB 3.375 GM 3.375 GM in DEXTROSE 5%-WATER - 50 ML IVPB SCH (21:00)
[2023-10-03] MEDS: VANCOMYCIN/WATER FOR INJ (PEG) 1,000 MG/200 ML BAG IVPB SCH (11:48)
[2023-10-03] MEDS ORDERED: INSULIN (NOVOLOG) ASPART 100 UNITS/ML 10ML VIAL ONE (20:50)
[2023-10-04] MEDS: MULTIVITAMINS (DAILY MVI) TABLET (FP) PO SCH (09:40)
[2023-10-04] MEDS: ASCORBIC ACID 250 MG TABLET (FP) PO SCH (09:41)
[2023-10-04] MEDS: AMINO ACIDS/PROTEIN HYDROLYS 30 ML LIQUID.PKT PO SCH (09:41)
[2023-10-04] MEDS ORDERED: INSULIN (NOVOLOG) ASPART 100 UNITS/ML 10ML VIAL ONE ×2 (11:58→21:04)
[2023-10-04 18:55] VITALS: BMI 16.2
[2023-10-06] MEDS ORDERED: INSULIN (NOVOLOG) ASPART 100 UNITS/ML 10ML VIAL ONE (21:36)
[2023-10-07 08:17] LABS: HEMATOCRIT 40.3 % (32.4-45.2); HEMOGLOBIN 13.6 GM/dL (10.7-15.3); MCH 30.2 pg (25.7-33.7); MCHC 33.7 g/dl (32.0-36.0); MEAN CELL VOLUME 89.6 fl (80-96); MEAN PLT VOLUME 6.7 fl (7.5-11.1); PLATELET COUNT 719 10^3/uL (134-434); RBC 4.49 M/mm3 (3.60-5.2); WHITE BLOOD COUNT 10.7 K/mm3 (4.0-10.0)
[2023-10-07 08:35] LABS: CALCIUM 9.1 mg/dL (8.5-10.1)
[2023-10-07 08:37] LABS: BLOOD UREA NITROGEN 18.3 mg/dL (7-18)
[2023-10-07 08:39] LABS: CREATININE 0.4 mg/dL (0.55-1.3)
[2023-10-07] MEDS: DOCUSATE SODIUM 100 MG CAPSULE (FP) PO PRN (09:00)
[2023-10-07 10:28] LABS: ANISOCYTOSIS 0; MACROCYTOSIS 0
[2023-10-07] MEDS ORDERED: INSULIN (NOVOLOG) ASPART 100 UNITS/ML 10ML VIAL ONE (12:33)
[2023-10-07 15:14] VITALS: RESP 20
[2023-10-08 14:17] VITALS: BP 130/64; PULSE 96; TEMP 98.8
== END 2023-10-08 18:01 | DRG 592 ==
LOC: JER 14:36 → JERBED 19:53 → J7W 10-02 03:24
PROVIDERS: ADMIT Internal Medicine; ATTEND Family Medicine
DX: L89.303 Pressure ulcer of unspecified buttock, stage 3 (principal); E43 Unspecified severe protein-calorie malnutrition; N39.0 Urinary tract infection, site not specified; Z68.1 Body mass index [BMI] 19.9 or less, adult; R64 Cachexia; I10 Essential (primary) hypertension; J44.9 Chronic obstructive pulmonary disease, unspecified; G30.9 Alzheimer's disease, unspecified; F02.80 Dementia in other diseases classified elsewhere, unspecified severity, without behavioral disturbance, psychotic disturbance, mood disturbance, and anxiety; E78.5 Hyperlipidemia, unspecified
CPT/HCPCS: 36415; 71045-TC-FY; 80048; 80053; 81003; 82550; 82553; 82962; 83735; 84100; 84484; 85025; 85610; 85730; 87040; 87086; 87186; 93005; 93010; 97116-GP; 97162-GP; 99285-25; J0131; J1644